=== PATIENT | female | born 2000 | race Asian ===

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

== ENCOUNTER 2021-05-03 10:45 | Emergency (ER) | payer OTHER ==
[2021-05-03 10:53] VITALS: BP 114/69; PULSE 76; TEMP 98.1; BMI 25.8
[2021-05-03 12:27] LABS: BASO % 1.3 % (0-2.0); EOS % 4.3 % (0-4.5); HEMATOCRIT 37.5 % (32.4-45.2); HEMOGLOBIN 13.3 GM/dL (10.7-15.3); LYMPH % 33.6 % (8-40); MCH 29.7 pg (25.7-33.7); MCHC 35.4 g/dl (32.0-36.0); MEAN CELL VOLUME 83.8 fl (80-96); MEAN PLT VOLUME 8.8 fl (7.5-11.1); MONO % 5.7 % (3.8-10.2); NEUT % 55.1 % (42.8-82.8); PLATELET COUNT 271 10^3/uL (134-434); RBC 4.47 M/mm3 (3.60-5.2); RDW 12.1 % (11.6-15.6); WHITE BLOOD COUNT 5.4 K/mm3 (4.0-10.0)
[2021-05-03 12:29] LABS: ALBUMIN 3.9 g/dl (3.4-5.0); BLOOD UREA NITROGEN 14.1 mg/dL (7-18); CALCIUM 9.7 mg/dL (8.5-10.1)
[2021-05-03 12:32] LABS: CREATININE 0.7 mg/dL (0.55-1.3)
[2021-05-03 12:33] LABS: TOT PROT 7.3 g/dl (6.4-8.2)
[2021-05-03 12:34] LABS: BILIRUBIN,TOTAL 0.6 mg/dL (0.2-1)
[2021-05-03 12:35] LABS: EPI CELLS 32 /uL (0-25.1); HCG,QUALITATIVE URINE Negative; HYALINE CASTS 3 /uL (0-3.1); PH,URINE 5.5 (5.0-8.0); URINE APPEARANCE CLEAR; URINE BACTERIA 15 /uL (0-1359); URINE BILIRUBIN NEGATIVE (NEGATIVE); URINE COLOR YELLOW; URINE GLUCOSE (UA) NEGATIVE (NEGATIVE); URINE KETONE TRACE (NEGATIVE); URINE LEUK ESTERASE NEGATIVE (NEGATIVE); URINE NITRITE NEGATIVE (NEGATIVE); URINE PROTEIN NEGATIVE (NEGATIVE); URINE RBC 29 /uL (0-23.9); URINE UROBILINOGEN 0.2 mg/dL (0.2-1.0); URINE WBC 4 /uL (0-25.8)
[2021-05-03] MEDS ORDERED: DOXYCYCLINE HYCLATE 100 MG CAPSULE PO ONE ×2 (14:39→14:47)
== END 2021-05-03 15:25 | disposition left against medical advice (07) ==
LOC: JERFT 10:45
DX: N83.291 Other ovarian cyst, right side (principal); N89.8 Other specified noninflammatory disorders of vagina; R10.2 Pelvic and perineal pain
CPT/HCPCS: 36415; 76830-TC; 80053; 81003; 83690; 84703; 85025; 87070; 87086; 87205; 87491; 87591; 99284-25